=== PATIENT | female | born 1995 | race Hispanic/Latino ===

== ENCOUNTER 2021-01-26 22:43 | Emergency (ER) | payer OTHER, SELFPAY ==
[2021-01-27] MEDS ORDERED: NA CHLORIDE 0.9% 1,000 ML ONE (00:10)
[2021-01-27] MEDS ORDERED: ONDANSETRON 4 MG/2 ML VIAL ONE (00:16)
[2021-01-27] MEDS ORDERED: DIAZEPAM 10 MG/2 ML INJ SYRINGE ONE (00:16)
[2021-01-27 00:36] LABS: Absolute Lymphocytes (CBC) 3.3 K/uL (0.7-4.9); Basophils % 0.7 % (0-1.3); Hematocrit 37.4 % (36.0-45.0); Lymphocytes % 40.8 % (15.3-44.8); RBC Red Blood Cell Count 4.19 M/uL (3.86-4.86)
[2021-01-27 00:39] LABS: Protime INR 1.09
[2021-01-27 00:43] LABS: Urine Blood Trace-intact (Negative); Urine Glucose Negative (Negative); Urine Protein 1+ (Negative); Urine Specific Gravity >=1.030 (1.005-1.030); Urine pH 6.5 (5.0-7.0)
[2021-01-27 00:51] LABS: ALT/SGPT 24 U/L (12-78); AST/SGOT 22 U/L (15-37); Albumin 3.9 g/dL (3.4-5.0); Alkaline Phosphatase 66 U/L (45-117); BUN Blood Urea Nitrogen 17 mg/dL (7-18); Bicarbonate 24 mmol/L (21-32); Bilirubin Direct < 0.1 mg/dL (0-0.2); Bilirubin Total 0.2 mg/dL (0.2-1.0); Glucose Level 151 mg/dL (74-106); Potassium 3.3 mmol/L (3.5-5.1); Protein, Total 7.9 g/dL (6.4-8.2); Sodium Level 140 mmol/L (136-145)
[2021-01-27 00:51] LABS: Urine Specific Gravity/Preg >1.030 (1.005-1.030)
[2021-01-27 01:36] LABS: Barbiturates NEGATIVE (NEGATIVE); Benzodiazepines NEGATIVE (NEGATIVE); Cocaine NEGATIVE (NEGATIVE); METHAMPHETAM NEGATIVE (NEGATIVE); Methadone NEGATIVE (NEGATIVE); Opiates NEGATIVE (NEGATIVE); Phencyclidine NEGATIVE (NEGATIVE); THC Cannibis POSITIVE (NEGATIVE)
--- NOTE | 2021-01-27 04:18 | ER ---
Nurse's Notes [facility] Name: Jennifer Mary Age: 25 yrs Sex: Female : 1995 Arrival Date: 01/26/2021 Time: 22:49 Bed 8 Private MD: Diagnosis: Cannabis abuse with intoxication Presentation: 01/26 23:03 Chief complaint: Friend and/or Co-Worker states: he took 3 pieces of edible candy, she rr5 dont know what is in it. now my heart is beating so fast and it's hurting. Coronavirus screen: Client denies travel out of the [place] in the last 14 days. At this time, the client does not indicate any symptoms associated with coronavirus-19. Ebola Screen: Patient negative for fever greater than or equal to 101.5 degrees Fahrenheit, and additional compatible Ebola Virus Disease symptoms Patient denies exposure to infectious person. Patient denies travel to an Ebola-affected area in the 21 days before illness onset. Initial Sepsis Screen: Does the patient meet any 2 criteria? No. Patient's initial sepsis screen is negative. Does the patient have a suspected source of infection? No. Patient's initial sepsis screen is negative. Risk Assessment: Do you want to hurt yourself or someone else? Patient reports no desire to harm self or others. Onset of symptoms was January 26, 2021. 23:03 Method Of Arrival: Wheelchair rr5 23:03 Acuity: [place] 2 rr5 Historical: - Allergies: 23:05 No Known Allergies; rr5 - Home Meds: 23:05 None [Active]; rr5 - PMHx: 23:05 None; rr5 - PSHx: 23:05 None; rr5 - Immunization history:: Adult Immunizations up to date. - Social history:: Smoking status: unknown. Screenin/20 00:10 Abuse screen: Denies threats or abuse. Nutritional screening: No deficits noted. jb4 Tuberculosis screening: No symptoms or risk factors identified. Fall Risk None identified. Assessment: 01/26 23:50 Reassessment: Pt actively vomiting, provider is at the bedside, received verbal order jb4 to give 4mg of Zofran IV, and 2mg of Valium IV. 01/27 00:10 General: Appears in no apparent distress. uncomfortable, Behavior is cooperative, jb4 anxious. Pain: Denies pain. Neuro: Level of Consciousness is awake, obeys commands, lethargic, Oriented to person, place, time, situation. Cardiovascular: Patient's skin is warm and dry. Respiratory: Airway is patent Respiratory effort is even, unlabored, Respiratory pattern is regular, symmetrical. GI: No signs and/or symptoms were reported involving the gastrointestinal system. : No signs and/or symptoms were reported regarding the genitourinary system. EENT: No signs and/or symptoms were reported regarding the EENT system. Derm: Skin is intact, Skin is pink, warm \T\ dry. Musculoskeletal: Circulation, motion, and sensation intact. Range of motion: intact in all extremities. 01:15 Reassessment: Reassessment: Pt is resting peacefully in bed with eyes closed, jb4 respirations are even and unlabored with no s/s of pain or distress noted. Sister remains at bedside. 02:15 Reassessment: Patient appears in no apparent distress at this time. No changes from jb4 previously documented assessment. Patient and/or family updated on plan of care and expected duration. Pain level reassessed. 03:00 Reassessment: Patient appears in no apparent distress at this time. No changes from jb4 previously documented assessment. Patient and/or family updated on plan of care and expected duration. Pain level reassessed. 04:36 Reassessment: Patient appears in no apparent distress at this time. Patient and/or jb4 family updated on plan of care and expected duration. Pain level reassessed. Patient is alert, oriented x 3, equal unlabored respirations, skin warm/dry/pink. Pt verbalized understanding of d/c and follow up instructions. Denies questions or concerns. Ambulated out of ED with friends and family with steady gait. Vital Signs: 01/26 23:03 BP 133 / 82; Pulse 121; Resp 19; Temp 97.7; Pulse Ox 100% ; Weight 58.97 kg; Height 5 rr5 ft. 1 in. (154.94 cm); Pain 05/19; 01/27 00:57 BP 119 / 69; Pulse 100; Resp 16; Pulse Ox 99% on R/A; jb4 02:00 BP 97 / 54; Pulse 82; Resp 15; Pulse Ox 97% on R/A; jb4 03:00 BP 96 / 53; Pulse 71; Resp 16; Pulse Ox 96% on R/A; jb4 04:30 BP 106 / 72; Pulse 68; Resp 16; Pulse Ox 98% on R/A; jb4 01/26 23:03 Body Mass Index 24.56 (58.97 kg, 154.94 cm) rr5 ED Course: 01/26 22:49 Patient arrived in ED. am4 23:04 Triage completed. rr5 23:41 Alan Calderon PA is PHCP. [facility] 23:41 Duc Quezada MD is Attending Physician. [facility] 23:48 Cong Romano, MITZY is Primary Nurse. jb4 01/27 00:10 Initial lab(s) drawn, by nm, sent to lab. Inserted saline lock: 18 gauge in right jb4 antecubital area, using aseptic technique. Blood collected. 00:10 Patient has correct armband on for positive identification. Bed in low position. Call 4 light in reach. Side rails up X 1. Pulse ox on. NIBP on. 04:30 No provider procedures requiring assistance completed. IV discontinued, intact, jb4 bleeding controlled, No redness/swelling at site. Pressure dressing applied. Administered Medications: 00:10 Drug: NS 0.9% 1000 ml Route: IV; Rate: 1 bolus; Site: right antecubital; jb4 01:00 Follow up: Response: No adverse reaction; IV Status: Completed infusion; IV Intake: jb4 1000ml 00:10 Drug: Zofran (Ondansetron) 4 mg Route: IVP; Site: right antecubital; jb4 00:40 Follow up: Response: No adverse reaction; Marked relief of symptoms; Nausea is decreasedjb4 00:12 Drug: Valium (diazepam) 2 mg Route: IVP; Site: right antecubital; jb4 00:45 Follow up: Response: No adverse reaction; Marked relief of symptoms jb4 00:50 Not Given (Other Intervention Used): Valium (diazepam) 5 mg IVP once jb4 Intake: 01:00 IV: 1000ml; Total: 1000ml. jb4 Outcome: 04:18 Discharge ordered by . [facility] 04:30 Discharged to home ambulatory, with family, with friend. jb4 04:30 Condition: stable 04:30 Discharge instructions given to patient, Instructed on discharge instructions, follow up and referral plans. Demonstrated understanding of instructions, follow-up care. 04:38 Patient left the ED. jb4 Signatures: Aaln Calderon PA PA jmm Bryson, James, RN RN jb4 Clay Connolly RN RN rr5 Duc Quezada MD MD mh7 Tiffany Meyers am4 Corrections: (The following items were deleted from the chart) 02:18 06/ 23:50 Reassessment: received verbal order to give 4mg of Zofran IV, and 2mg of jb4 Valium IV. jb4
--- NOTE | 2021-01-27 04:18 | EDPHYS ---
Physician Documentation [facility] Name: Jennifer Mary Age: 25 yrs Sex: Female : 1995 Arrival Date: 01/26/2021 Time: 22:49 Bed 8 Private MD: ED Physician Duc Quezada HPI: 01/26 23:58 This 25 yrs old Female presents to ER via Wheelchair with complaints of jmm INGESTION. 23:58 The patient presents to the emergency department with a possible poisoning. Context: jmm Time: just prior to arrival. Associated signs and symptoms: Pertinent positives: anxiety, nausea, palpitations. The patient has not experienced similar symptoms in the past. This is a 25 year old female with no chronic medical conditions that presents to the ED with complaints of palpitations, vomiting. Patient took what she believed was a cbd gummy. . Historical: - Allergies: 23:05 No Known Allergies; rr5 - Home Meds: 23:05 None [Active]; rr5 - PMHx: 23:05 None; rr5 - PSHx: 23:05 None; rr5 - Immunization history:: Adult Immunizations up to date. - Social history:: Smoking status: unknown. ROS: 23:58 Constitutional: Negative for fever, chills, and weight loss, Cardiovascular: Negative jmm for chest pain, palpitations, and edema, Respiratory: Negative for shortness of breath, cough, wheezing, and pleuritic chest pain. 23:58 Abdomen/GI: Positive for vomiting. 23:58 All other systems are negative. Exam: 23:58 Head/Face: atraumatic. Eyes: EOMI, no conjunctival erythema appreciated ENT: Moist jmm Mucus Membranes Neck: Trachea midline, Supple Chest/axilla: Normal chest wall appearance and motion. 23:58 Respiratory: Normal respirations, no respiratory distress appreciated Abdomen/GI: Non distended, soft Back: Normal ROM Skin: General appearance color normal MS/ Extremity: Moves all extremities, no obvious deformities appreciated, no edema noted to the lower extremities Neuro: Awake and alert, normal gait 23:58 Constitutional: The patient appears alert, awake, anxious. 23:58 Cardiovascular: Rate: tachycardic, Rhythm: regular. 23:58 Psych: Behavior/mood is cooperative, anxious. Vital Signs: 23:03 BP 133 / 82; Pulse 121; Resp 19; Temp 97.7; Pulse Ox 100% ; Weight 58.97 kg; Height 5 rr5 ft. 1 in. (154.94 cm); Pain 05/19; 01/27 00:57 BP 119 / 69; Pulse 100; Resp 16; Pulse Ox 99% on R/A; jb4 02:00 BP 97 / 54; Pulse 82; Resp 15; Pulse Ox 97% on R/A; jb4 03:00 BP 96 / 53; Pulse 71; Resp 16; Pulse Ox 96% on R/A; jb4 04:30 BP 106 / 72; Pulse 68; Resp 16; Pulse Ox 98% on R/A; jb4 01/26 23:03 Body Mass Index 24.56 (58.97 kg, 154.94 cm) rr5 MDM: 01/26 23:54 Patient medically screened. [facility] 01/27 01:05 Transition of care: After a detail discussion of the patient's case, care is [facility] transferred to Cong Romano RN. 01/26 23:42 Order name: Acetaminophen [facility] 01/26 23:42 Order name: Basic Metabolic Panel [facility] 01/26 23:42 Order name: CBC with Diff [facility] 01/26 23:42 Order name: ETOH Level; Complete Time: 01:00 [facility] 01/26 23:42 Order name: Hepatic Function; Complete Time: 01:00 [facility] 01/26 23:42 Order name: PT-INR; Complete Time: 01:00 [facility] 01/26 23:42 Order name: Ptt, Activated; Complete Time: 01:00 [facility] 01/26 23:42 Order name: Salicylate; Complete Time: 01:00 [facility] 01/26 23:42 Order name: Urine Drug Screen; Complete Time: 02:19 [facility] 01/26 23:42 Order name: Acetaminophen Level; Complete Time: 01:00 [facility] 01/26 23:42 Order name: Basic Metabolic Panel; Complete Time: 01:00 [facility] 01/26 23:42 Order name: CBC with Automated Diff; Complete Time: 01:00 [facility] 01/27 00:42 Order name: Urine Dipstick-Ancillary; Complete Time: 01: [facility] 01/27 00:44 Order name: Urine --Ancillary (enter results); Complete Time: 01:[address] [facility] 01/26 23:42 Order name: EKG; Complete Time: 23:43 [facility] 01/26 23:42 Order name: EKG - Nurse/Tech; Complete Time: 00:51 [facility] 01/26 23:42 Order name: IV Saline Lock; Complete Time: 00:50 [facility] 01/26 23:42 Order name: Labs collected and sent; Complete Time: 00:50 [facility] 01/26 23:42 Order name: Suicide Screening ([place]); Complete Time: 00:50 [facility] 01/26 23:42 Order name: Urine Dipstick-Ancillary (obtain specimen); Complete Time: 00:50 [facility] Administered Medications: 00:10 Drug: NS 0.9% 1000 ml Route: IV; Rate: 1 bolus; Site: right antecubital; jb4 01:00 Follow up: Response: No adverse reaction; IV Status: Completed infusion; IV Intake: jb4 1000ml 00:10 Drug: Zofran (Ondansetron) 4 mg Route: IVP; Site: right antecubital; jb4 00:40 Follow up: Response: No adverse reaction; Marked relief of symptoms; Nausea is decreasedjb4 00:12 Drug: Valium (diazepam) 2 mg Route: IVP; Site: right antecubital; jb4 00:45 Follow up: Response: No adverse reaction; Marked relief of symptoms jb 00:50 Not Given (Other Intervention Used): Valium (diazepam) 5 mg IVP once jb4 Disposition: 05:15 Co-signature as Attending Physician, Duc Quezada MD. 7 Disposition: 01/27/21 04:18 Discharged to Home. Impression: Cannabis abuse with intoxication. - Condition is Stable. - Discharge Instructions: Cannabis Use Disorder. - Medication Reconciliation Form, Thank You Letter, Antibiotic Education, Prescription Opioid Use form. - Follow up: Private Physician; When: 1 - 2 days; Reason: Worsening of condition, Recheck today's complaints, Continuance of care, Re-evaluation by your physician. - Problem is new. - Symptoms have improved. Signatures: Dispatcher [employer] EDMS Alan Calderon PA PA jmm Bryson, James RN RN jb4 Clay Connolly RN RN rr5 Duc Quezada MD MD 7 Corrections: (The following items were deleted from the chart) 04:38 04:18 01/27/2021 04:18 Discharged to Home. Impression: Cannabis abuse with jb4 intoxication. Condition is Stable. Forms are Medication Reconciliation Form, Thank You Letter, Antibiotic Education, Prescription Opioid Use. Follow up: Private Physician; When: 1 - 2 days; Reason: Worsening of condition, Recheck today's complaints, Continuance of care, Re-evaluation by your physician. Problem is new. Symptoms have improved. mh7
[2021-01-27 04:45] VITALS: TEMP 97.7
[2021-01-27 04:51] VITALS: BP 106/72; O2SAT 98
--- NOTE | 2021-01-28 08:26 | EKG ---
Test Date: 2021-01-27 Test Time: 00:18:09 Jockey Valet: HILARIO MEASUREMENT RESULTS: Intervals: Rate: 105 MI: 146 QRSD: 82 QT: 328 QTc: 433 [place]: P: 63 MI: 146 QRS: 83 T: 39 INTERPRETIVE STATEMENTS: Sinus tachycardia Otherwise normal ECG Compared to ECG 04/04/2014 15:26:08 Sinus rhythm no longer present Electronically Signed On 01-28-21 08:24:01 CDT by Андрей Moy
== END 2021-01-27 04:38 | disposition home or self-care (01) ==
LOC: ER 22:43
DX: F12.129 Cannabis abuse with intoxication, unspecified (principal)
CPT/HCPCS: 36415; 80048; 80076; 80307; 80320; 80329; 81003; 81025; 85025; 85610; 85730; 93005; 96361; 96374; 96375; 99284

== ENCOUNTER 2021-02-01 15:34 | Emergency (ER) | payer SELFPAY ==
[2021-02-01 19:31] LABS: Absolute Lymphocytes (CBC) 3.9 K/uL (0.7-4.9); Basophils % 0.8 % (0-1.3); Hematocrit 39.7 % (36.0-45.0); Lymphocytes % 39.2 % (15.3-44.8)
[2021-02-01 19:32] LABS: Protime INR 1.2
[2021-02-01 19:48] LABS: ALT/SGPT 26 U/L (12-78); AST/SGOT 22 U/L (15-37); Albumin 4.3 g/dL (3.4-5.0); Alkaline Phosphatase 72 U/L (45-117); BUN Blood Urea Nitrogen 13 mg/dL (7-18); Bicarbonate 26 mmol/L (21-32); Bilirubin Direct < 0.1 mg/dL (0-0.2); Bilirubin Total 0.3 mg/dL (0.2-1.0); Glucose Level 79 mg/dL (74-106); Magnesium 2.1 mg/dL (1.8-2.4); NT PRO-BNP 14 pg/mL (<125); Potassium 3.7 mmol/L (3.5-5.1); Protein, Total 8.6 g/dL (6.4-8.2); Sodium Level 138 mmol/L (136-145); Troponin (Emerg Dept Use Only) < 0.02 ng/mL (0.0-0.045)
--- NOTE | 2021-02-01 19:51 | RAD REPORT ---
EXAM DESCRIPTION: RAD - Chest Single View - 02/01/2021 7:20 pm CLINICAL HISTORY: CHEST PAIN Chest pain. COMPARISON: <Comparisons> FINDINGS: Portable technique limits examination quality. The lungs are grossly clear. The heart is normal in size. No displaced fractures. IMPRESSION: No acute intrathoracic process suspected.
[2021-02-01 20:44] LABS: Urine Blood Trace-intact (Negative); Urine Glucose Negative (Negative); Urine Protein Negative (Negative); Urine Specific Gravity 1.025 (1.005-1.030)
[2021-02-01 21:04] LABS: Urine Specific Gravity/Preg 1.025 (1.005-1.030)
--- NOTE | 2021-02-01 21:58 | ER ---
Nurse's Notes [facility] Name: Jennifer Mary Age: 25 yrs Sex: Female : 1995 Arrival Date: 02/01/2021 Time: 15:36 Bed 15 Private MD: Diagnosis: Chest pain, unspecified Presentation: 02/01 16:56 Chief complaint: Patient states: Chest pain starting Thursday. Pt stated, " I was here kg Thursday night, I took edibles and didn't know it. I started vomiting and freaking out. My pain hasn't really gotten any better and I just want to make sure I didn't have a heart attack. I've also been having SOB since Thursday. ". Coronavirus screen: Client denies travel out of the [place] in the last 14 days. At this time, unable to obtain information related to travel outside the [place] At this time, the client does not indicate any symptoms associated with coronavirus-19. Ebola Screen: Patient negative for fever greater than or equal to 101.5 degrees Fahrenheit, and additional compatible Ebola Virus Disease symptoms Patient denies exposure to infectious person. Patient denies travel to an Ebola-affected area in the 21 days before illness onset. Initial Sepsis Screen: Does the patient meet any 2 criteria? No. Patient's initial sepsis screen is negative. Does the patient have a suspected source of infection? No. Patient's initial sepsis screen is negative. Risk Assessment: Do you want to hurt yourself or someone else? Patient reports no desire to harm self or others. Onset of symptoms was January 26, 2021. 16:56 Method Of Arrival: Ambulatory kg 16:56 Acuity: [place] 3 kg Triage Assessment: 17:00 General: Appears in no apparent distress. Behavior is calm, cooperative, appropriate kg for age, quiet. Pain: Complains of pain in anterior aspect of right upper chest, anterior aspect of left upper chest and mid-sternal area Pain radiates to chin Pain currently is 8 out of 10 on a pain scale. at worst was 8 out of 10 on a pain scale. level that patient reports is acceptable is 3 out of 10 on a pain scale. Quality of pain is described as burning, pressure, Pain began Thursday. Cardiovascular: No deficits noted. Heart tones S1 S2 Capillary refill < 3 seconds Pulses are 4+ in right radial artery and left radial artery Chest pain is described as Pain is 8 out of 10 on a pain scale. is located in anterior radiates neck began Thursday is aggravated by Carrying heavy stuff is alleviated by breathing, rest. 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 - Social history:: Smoking status: Patient denies any tobacco usage or history of. Patient uses alcohol, occasionally. Screenin:04 Abuse screen: Denies threats or abuse. Denies injuries from another. Nutritional kg screening: No deficits noted. Tuberculosis screening: No symptoms or risk factors identified. Fall Risk None identified. No fall in past 12 months (0 pts). No secondary diagnosis (0 pts). No IV (0 pts). Ambulatory Aid- None/Bed Rest/Nurse Assist (0 pts). Gait- Normal/Bed Rest/Wheelchair (0 pts) Mental Status- Oriented to own ability (0 pts). Total Virgen Fall Scale indicates No Risk (0-24 pts). Assessment: 19:00 General: Appears in no apparent distress. uncomfortable, Behavior is cooperative, zb anxious. Pain: Complains of pain in mid-sternal area Pain does not radiate. Pain currently is 9 out of 10 on a pain scale. Quality of pain is described as heavy, sharp. Pain:. Neuro: Level of Consciousness is awake, alert, obeys commands, Oriented to person, place, time, situation. Cardiovascular: Heart tones S1 S2 present Capillary refill < 3 seconds Patient's skin is warm and dry. Respiratory: Airway is patent Respiratory effort is even, unlabored, Respiratory pattern is regular, symmetrical, Breath sounds are clear bilaterally. the patient has mild shortness of breath. GI: Abdomen is flat, Bowel sounds present X 4 quads. : Urine is clear. Derm: Skin is intact, is healthy with good turgor, Skin is dry, Skin is normal. Musculoskeletal: Circulation, motion, and sensation intact. Range of motion: intact in all extremities. 20:00 Reassessment: Patient appears in no apparent distress at this time. Patient and/or zb family updated on plan of care and expected duration. Pain level reassessed. Patient is alert, oriented x 3, equal unlabored respirations, skin warm/dry/pink. 21:00 Reassessment: Patient appears in no apparent distress at this time. Patient and/or zb family updated on plan of care and expected duration. Pain level reassessed. Patient is alert, oriented x 3, equal unlabored respirations, skin warm/dry/pink. 21:41 Reassessment: Patient appears in no apparent distress at this time. Patient and/or zb family updated on plan of care and expected duration. Pain level reassessed. Patient is alert, oriented x 3, equal unlabored respirations, skin warm/dry/pink. Vital Signs: 16:56 BP 148 / 82; Pulse 58; Resp 18; Temp 98.0(TE); Pulse Ox 100% on R/A; Weight 58.29 kg kg (M); Height 5 ft. 0 in. (152.40 cm) (R); Pain 8/10; 18:45 BP 132 / 62; Pulse 62; Resp 16; Pulse Ox 100% on R/A; zb 19:30 BP 122 / 68; Pulse 62; Resp 18; Pulse Ox 100% on R/A; zb 20:40 BP 126 / 72; Pulse 61; Resp 16; Pulse Ox 100% on R/A; zb 16:56 Body Mass Index 25.10 (58.29 kg, 152.40 cm) kg ED Course: 15:36 Patient arrived in ED. as 16:59 Triage completed. kg 17:04 Patient has correct armband on for positive identification. kg 17:38 Alan Calderon PA is PHCP. jmm 17:39 Enoch Allen MD is Attending Physician. jmm 18:26 Alan Calderon PA is PHCP. jmm 18:26 Enoch Allen MD is Attending Physician. jmm 18:45 EKG done, by ED staff, reviewed by Alan HUSTON. em1 18:53 Silvia Cline, RN is Primary Nurse. zb 19:00 Initial lab(s) drawn, by me, sent to lab. Inserted saline lock: 20 gauge in right zb antecubital area, using aseptic technique. Blood collected. 19:20 XRAY Chest (1 view) In Process Unspecified. EDMS 20:33 Placed in gown. Bed in low position. Call light in reach. Side rails up X 1. Warm mh5 blanket given. manager monitoring on. Pulse ox on. NIBP on. 20:43 Arm band placed on. zb 20:43 Patient maintains SpO2 saturation greater than 95% on room air. zb 21:35 Basic Metabolic Panel Sent. 5 21:35 Urine collected: clean catch specimen, clear. 5 22:07 No provider procedures requiring assistance completed. IV discontinued, intact, zb bleeding controlled, No redness/swelling at site. Pressure dressing applied. Administered Medications: 19:15 Not Given (Patient Refused): Decadron - Dexamethasone 10 mg IVP once zb 19:15 Not Given (Patient Refused): Valium (diazepam) 2 mg IVP once zb Outcome: 21:57 Discharge ordered by . rudi 22:07 Discharged to home ambulatory, with significant other. zb 22:07 Condition: stable 22:07 Discharge instructions given to patient, significant other, Instructed on discharge instructions, follow up and referral plans. Demonstrated understanding of instructions, follow-up care. 22:09 Patient left the ED. zb Signatures: Dispatcher [employer] EDMS Alan Calderon PA PA jmm Martinez, Amelia as Martinez, Eric 1 Eva Meyers 5 Silvia Cline RN RN zb Graham, Kristen, MITZY RN kg Corrections: (The following items were deleted from the chart) 17:00 16:56 Chief complaint: Patient states: Chest pain starting Thursday. Pt stated, " I was kg here Thursday night, I took edibles and didn't know it. I started vomiting and freaking out. My pain hasn't really gotten any better and I just want to make sure I didn't have a heart attack." kg 20:42 18:30 BP 132 / 62; Pulse 62bpm; Resp 16bpm; Pulse Ox 100% RA; zb zb
--- NOTE | 2021-02-01 21:58 | EDPHYS ---
Physician Documentation [facility] Name: Jennifer Mary Age: 25 yrs Sex: Female : 1995 Arrival Date: 02/01/2021 Time: 15:36 Bed 15 Private MD: ED Physician Enoch Allen HPI: 02/01 18:30 This 25 yrs old Female presents to ER via Ambulatory with complaints of Chest jmm Pain. 18:30 The patient or guardian reports chest pain that is located primarily in the substernal jmm area. The pain radiates to neck. Associated signs and symptoms: Pertinent negatives: shortness of breath. The chest pain is described as a pressure. Duration: The patient or guardian reports a single episode, that is still ongoing. This is a 25 year old female with a history of anxiety that presents to the ED with complaints of chest pain beginning after ingestion of a gummy. patient developed active vomiting at that time. was evaluated in the ED. patient states since has had chest pain worsening throughout the week. . 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 - Social history:: Smoking status: Patient denies any tobacco usage or history of. Patient uses alcohol, occasionally. ROS: 18:30 Constitutional: Negative for fever, chills, and weight loss. jmm 18:30 Cardiovascular: Positive for chest pain. 18:30 All other systems are negative. Exam: 18:30 Constitutional: This is a well developed, well nourished patient who is awake, alert, jmm and in no acute distress. Head/Face: atraumatic. Eyes: EOMI, no conjunctival erythema appreciated ENT: Moist Mucus Membranes Neck: Trachea midline, Supple Chest/axilla: Normal chest wall appearance and motion. Cardiovascular: Regular rate and rhythm. No edema appreciated Respiratory: Normal respirations, no respiratory distress appreciated Abdomen/GI: Non distended, soft Back: Normal ROM Skin: General appearance color normal MS/ Extremity: Moves all extremities, no obvious deformities appreciated, no edema noted to the lower extremities Neuro: Awake and alert, normal gait Psych: Behavior is normal, Mood is normal, Patient is cooperative and pleasant Vital Signs: 16:56 BP 148 / 82; Pulse 58; Resp 18; Temp 98.0(TE); Pulse Ox 100% on R/A; Weight 58.29 kg kg (M); Height 5 ft. 0 in. (152.40 cm) (R); Pain 8/10; 18:45 BP 132 / 62; Pulse 62; Resp 16; Pulse Ox 100% on R/A; zb 19:30 BP 122 / 68; Pulse 62; Resp 18; Pulse Ox 100% on R/A; zb 20:40 BP 126 / 72; Pulse 61; Resp 16; Pulse Ox 100% on R/A; zb 16:56 Body Mass Index 25.10 (58.29 kg, 152.40 cm) kg MDM: 18:30 Patient medically screened. marian 21:56 Data reviewed: vital signs, nurses notes. Counseling: I had a detailed discussion with rudi the patient and/or guardian regarding: the historical points, exam findings, and any diagnostic results supporting the discharge/admit diagnosis, lab results, radiology results, the need for outpatient follow up, to return to the emergency department if symptoms worsen or persist or if there are any questions or concerns that arise at home. ED course: Patient is alert and non toxic in appearance. I do not suspect acs. Patient is advised to follow up with pcp and otherwise given strict return precautions. patient understood and agrees with the plan of care. . 02/01 18:48 Order name: Basic Metabolic Panel [facility] 02/01 18:48 Order name: CBC with Diff; Complete Time: 19:33 [facility] 02/01 18:48 Order name: LFT's; Complete Time: 19:57 [facility] 02/01 18:48 Order name: Magnesium; Complete Time: 19:57 [facility] 02/01 18:48 Order name: NT PRO-BNP; Complete Time: 19:57 [facility] 02/01 18:48 Order name: PT-INR; Complete Time: 19:36 [facility] 02/01 18:48 Order name: Troponin (emerg Dept Use Only); Complete Time: 19:57 [facility] 02/01 18:48 Order name: XRAY Chest (1 view); Complete Time: 19:57 [facility] 02/01 18:49 Order name: Basic Metabolic Panel; Complete Time: 19:57 [facility] 02/01 19:05 Order name: D-Dimer; Complete Time: 19:57 [facility] 02/01 19:05 Order name: Test, Serum; Complete Time: 21:15 [facility] 02/01 20:43 Order name: Urine Dipstick-Ancillary; Complete Time: 20:51 [facility] 02/01 20:44 Order name: Urine --Ancillary (enter results); Complete Time: 21:15 [facility] 02/01 18:48 Order name: EKG; Complete Time: 18:49 [facility] 02/01 18:48 Order name: Cardiac monitoring; Complete Time: 20:03 [facility] 02/01 18:48 Order name: EKG - Nurse/Tech; Complete Time: 20:03 [facility] 02/01 18:48 Order name: IV Saline Lock; Complete Time: 19:51 [facility] 02/01 18:48 Order name: Labs collected and sent; Complete Time: 19:51 [facility] 02/01 18:48 Order name: O2 Per Protocol; Complete Time: 19:51 [facility] 02/01 18:48 Order name: O2 Sat Monitoring; Complete Time: 19:51 [facility] Administered Medications: 19:15 Not Given (Patient Refused): Decadron - Dexamethasone 10 mg IVP once zb 19:15 Not Given (Patient Refused): Valium (diazepam) 2 mg IVP once zb Disposition: 02/02 21:13 Co-signature as Attending Physician, Enoch Allen MD I agree with the assessment and marian plan of care. Disposition: 02/01/21 21:57 Discharged to Home. Impression: Chest pain, unspecified. - Condition is Stable. - Discharge Instructions: Nonspecific Chest Pain. - Medication Reconciliation Form, Thank You Letter, Antibiotic Education, Prescription Opioid Use form. - Follow up: Private Physician; When: 2 - 3 days; Reason: Recheck today's complaints, Continuance of care, Re-evaluation by your physician. Signatures: Dispatcher [employer] Enoch Ricketts MD MD cha Mickail, Joel, PA PA jmm Brown, Zipporah, RN RN zb Graham, Kristen, RN RN kg Corrections: (The following items were deleted from the chart) 02/01 22:09 21:57 02/01/2021 21:57 Discharged to Home. Impression: Chest pain, unspecified. zb Condition is Stable. Forms are Medication Reconciliation Form, Thank You Letter, Antibiotic Education, Prescription Opioid Use. Follow up: Private Physician; When: 2 - 3 days; Reason: Recheck today's complaints, Continuance of care, Re-evaluation by your physician. rudi
[2021-02-01 22:14] VITALS: TEMP 98; O2SAT 100
[2021-02-01 22:19] VITALS: BP 126/72
--- NOTE | 2021-02-02 06:57 | EKG ---
Test Date: 2021-02-01 Test Time: 18:29:01 [employer] Operator: CORRY MEASUREMENT RESULTS: Intervals: Rate: 52 IN: 130 QRSD: 80 QT: 406 QTc: 377 Narvon: P: 72 IN: 130 QRS: 79 T: 64 INTERPRETIVE STATEMENTS: Sinus bradycardia Otherwise normal ECG Compared to ECG 01/27/2021 00:18:09 Sinus tachycardia no longer present Electronically Signed On 02-02-21 06:56:17 CDT by Андрей Moy
== END 2021-02-01 22:09 | disposition home or self-care (01) ==
LOC: ER 15:34
DX: R07.9 Chest pain, unspecified (principal)
CPT/HCPCS: 36415; 71045; 80048; 80076; 81003; 81025; 83735; 83880; 84484; 84703; 85025; 85379; 85610; 93005; 99285